=== PATIENT | male | born 1995 ===

== ENCOUNTER 2022-01-02 18:03 | Emergency (ER) | payer SELFPAY | END 2022-01-02 19:00 | disposition left against medical advice (07) | LOC: ED 18:03 | DX: S69.92XA Unspecified injury of left wrist, hand and finger(s), initial encounter (principal); Z53.21 Procedure and treatment not carried out due to patient leaving prior to being seen by health care provider; X58.XXXA Exposure to other specified factors, initial encounter; Y93.89 Activity, other specified; Y92.89 Other specified places as the place of occurrence of the external cause; Y99.8 Other external cause status ==